=== PATIENT | female | born 1965 | race Hispanic/Latino ===

== ENCOUNTER → 2024-08-25 | Day surgery (SDC) | payer OTHER ==
[~2024-08-25] MED LIST: CIPRO500 MG PO; FAMOTIDINE20 MG PO; FAMOTIDINE40 MG PO; LEVSIN-SL0.125 MG SL; LORATADINE10 MG PO; MELOXICAM7.5 MG PO; NIFEDIPINE ER30 M1 PO; OLMESARTAN-HCT1 EACH PO; PREDNISONE20 MG PO; VIT D PO
[2024-08-25] MEDS: LACTATED RINGER'S 1,000 ML ONE (07:39)
[2024-08-25 11:00] VITALS: BP 152/84; PULSE 91; RESP 16; TEMP 98; O2SAT 97
== END | disposition home or self-care (01) ==
LOC: OR 06:50
PROVIDERS: ATTEND Internal Medicine Gastroenterology
DX: Z12.11 Encounter for screening for malignant neoplasm of colon (principal); D12.2 Benign neoplasm of ascending colon; K26.3 Acute duodenal ulcer without hemorrhage or perforation; K29.80 Duodenitis without bleeding; K29.50 Unspecified chronic gastritis without bleeding; B96.81 Helicobacter pylori [H. pylori] as the cause of diseases classified elsewhere; K44.9 Diaphragmatic hernia without obstruction or gangrene; R19.7 Diarrhea, unspecified; K57.30 Diverticulosis of large intestine without perforation or abscess without bleeding; K64.8 Other hemorrhoids; G47.33 Obstructive sleep apnea (adult) (pediatric); I10 Essential (primary) hypertension; E66.01 Morbid (severe) obesity due to excess calories; Z01.810 Encounter for preprocedural cardiovascular examination; Z79.1 Long term (current) use of non-steroidal anti-inflammatories (NSAID); Z79.899 Other long term (current) drug therapy; Z68.35 Body mass index [BMI] 35.0-35.9, adult; Z86.69 Personal history of other diseases of the nervous system and sense organs; Z80.0 Family history of malignant neoplasm of digestive organs
CPT/HCPCS: 43239; 45380; 45384; 88305; 93005; J7121; 45385

== ENCOUNTER 2024-08-28 09:18 | Inpatient (IN) | payer OTHER ==
[~2024-08-28] VITALS: Ht 162.6 cm; Wt 91.2 kg
[~2024-08-28 09:18] MED LIST changes: -FAMOTIDINE20 MG PO; -LORATADINE10 MG PO; -PREDNISONE20 MG PO
[2024-08-28 10:04] LABS: BASOPHILS # (AUTO) 0.1 (0.0-0.1); BASOPHILS % 1.2 % (0.0-1.0); EOSINOPHILS # (AUTO) 0.6 (0.0-0.4); EOSINOPHILS % 6.1 % (0.0-6.0); HEMATOCRIT 37.7 % (34.2-44.1); HEMOGLOBIN 12.5 g/dL (12.0-16.0); LYMPHOCYTES # (AUTO) 1.8 (1.0-3.2); LYMPHOCYTES % 18.1 % (18.0-39.1); MEAN CORPUSCULAR HEMOGLOBIN 28.3 pg (28-32); MEAN CORPUSCULAR HGB CONC 33.2 g/dL (31-35); MEAN CORPUSCULAR VOLUME 85.5 fL (81-99); MONOCYTES # (AUTO) 1.1 (0.2-0.8); MONOCYTES % 10.7 % (4.4-11.3); NEUTROPHILS # (AUTO) 6.1 (2.1-6.9); NEUTROPHILS % 62.1 % (38.7-80.0); PLATELET COUNT 252 x10e3/uL (140-360); RED BLOOD COUNT 4.41 x10e6/uL (3.6-5.1); WHITE BLOOD COUNT 9.78 x10e3/uL (4.8-10.8)
[2024-08-28 10:23] LABS: ALBUMIN 3.8 g/dL (3.5-5.0); ANION GAP 14.4 mmol/L (8-16); BILIRUBIN,TOTAL 0.3 mg/dL (0.2-1.2); CALCIUM 9.4 mg/dL (8.4-10.2); CREATININE, SERUM 0.78 mg/dL (0.57-1.11); POTASSIUM 3.4 mmol/L (3.5-5.1); TOTAL PROTEIN 7.6 g/dL (6.5-8.1)
[2024-08-28] MEDS: FAMOTIDINE 20 MG/2 ML VIAL IV STA (10:37)
[2024-08-28] MEDS: SODIUM CHLORIDE 0.9% 1000ML 1,000 ML IV ONE (10:38)
[2024-08-28] MEDS: METHYLPREDNISOLONE SOD SUCC 125 MG/2ML VIAL IV ONE (10:38)
[2024-08-28] MEDS: DIPHENHYDRAMINE HCL INJ 50 MG/ML VIAL IV ONE (10:38)
[2024-08-28] MEDS ORDERED: IOPAMIDOL 370 MG/ML 100 ML INFUS..BTL INJ ONE (10:40)
[2024-08-28] MEDS ORDERED: ONDANSETRON HCL INJ 2MG/ML 2ML 2 MG/ML VIAL IV PRN (12:30)
[2024-08-28] MEDS ORDERED: SODIUM CHLORIDE FLUSH 10 ML SYR INJ PRN (12:30)
[2024-08-28 12:36] VITALS: TEMP 98.4
[2024-08-28 14:38] VITALS: PULSE 64; RESP 18
[2024-08-28 15:30] VITALS: BP_SYST 144; BP_SYST 150; BP_DIAS 111; BP_DIAS 53; PULSE 106; PULSE 75; RESP 20; TEMP 98.2; TEMP 98.7; O2SAT 100; O2SAT 99
[2024-08-28] MEDS: LORATADINE 10 MG TAB PO SCH (17:23)
[2024-08-28 20:00] VITALS: BP 141/96; PULSE 115; RESP 18; TEMP 99.1; O2SAT 98
[2024-08-28] MEDS: FAMOTIDINE 20 MG TAB PO SCH (20:42)
[2024-08-28] MEDS: ACETAMINOPHEN/CODEINE 300MG - 30MG TAB PO PRN (20:43)
[2024-08-28] MEDS: NIFEDIPINE CR 30 MG TAB PO SCH (20:49)
[2024-08-28] MEDS: SODIUM CHLORIDE 0.9% 250ML 250 ML ONE (20:54)
[2024-08-29] VITALS (7 sets, daily range): BP systolic 110–138; BP diastolic 78–87; PULSE 94–109; RESP 17–20; TEMP 98.3–99.3; O2SAT 96–100
[2024-08-29] MEDS: MELATONIN 3 MG TAB PO SCH (03:34)
[2024-08-29] MEDS: HYDROCODONE/APAP 7.5MG-325MG 1 EA TAB PO PRN (03:35)
[2024-08-29 05:43] LABS: BASOPHILS # (AUTO) 0.1 (0.0-0.1); BASOPHILS % 0.3 % (0.0-1.0); EOSINOPHILS % 0.1 % (0.0-6.0); HEMATOCRIT 37.9 % (34.2-44.1); HEMOGLOBIN 12.1 g/dL (12.0-16.0); LYMPHOCYTES # (AUTO) 1.9 (1.0-3.2); LYMPHOCYTES % 13.4 % (18.0-39.1); MEAN CORPUSCULAR HGB CONC 31.9 g/dL (31-35); MEAN CORPUSCULAR VOLUME 87.7 fL (81-99); MONOCYTES # (AUTO) 1.2 (0.2-0.8); MONOCYTES % 8.4 % (4.4-11.3); NEUTROPHILS % 77.2 % (38.7-80.0); PLATELET COUNT 280 x10e3/uL (140-360); RED BLOOD COUNT 4.32 x10e6/uL (3.6-5.1); RED CELL DISTRIBUTION WIDTH 13.2 % (11.7-14.4); WHITE BLOOD COUNT 14.29 x10e3/uL (4.8-10.8)
[2024-08-29 06:10] LABS: ALBUMIN 3.8 g/dL (3.5-5.0); ANION GAP 15.3 mmol/L (8-16); BILIRUBIN,TOTAL 0.3 mg/dL (0.2-1.2); CALCIUM 9.4 mg/dL (8.4-10.2); CREATININE, SERUM 0.73 mg/dL (0.57-1.11); TOTAL PROTEIN 7.7 g/dL (6.5-8.1)
[2024-08-29 06:12] LABS: POTASSIUM 3.3 mmol/L (3.5-5.1)
[2024-08-29] MEDS: DIPHENHYDRAMINE HCL 25 MG CAP PO PRN (12:27)
[2024-08-29] MEDS: MAALOX/LIDOCAINE/BENADRYL/NYST 30 ML BTL PO PRN (12:31)
[2024-08-29] MEDS ORDERED: MELATONIN 3 MG TAB PO SCH (21:00)
[2024-08-30] VITALS (9 sets, daily range): BP systolic 115–125; BP diastolic 74–91; PULSE 86–115; RESP 17–19; TEMP 97.3–98.6; O2SAT 97–100
[2024-08-30] MEDS: POTASSIUM CHLORIDE 20 MEQ TAB CR PO STA (03:52)
[2024-08-30] MEDS: POTASSIUM CHLORIDE 20 MEQ TAB CR PO ONE (14:32)
[2024-08-30] MEDS: PREDNISONE 10 MG TAB PO SCH (14:36)
[2024-08-31] VITALS: BP 117/86; PULSE 65; RESP 17; TEMP 98.5; O2SAT 98
[2024-08-31 04:00] VITALS: BP 128/90; PULSE 79; RESP 17; TEMP 98.4; O2SAT 96
[2024-08-31 07:21] LABS: BASOPHILS # (AUTO) 0.1 (0.0-0.1); BASOPHILS % 1.5 % (0.0-1.0); EOSINOPHILS # (AUTO) 0.3 (0.0-0.4); EOSINOPHILS % 3.2 % (0.0-6.0); HEMATOCRIT 37.4 % (34.2-44.1); HEMOGLOBIN 11.5 g/dL (12.0-16.0); LYMPHOCYTES # (AUTO) 2.5 (1.0-3.2); LYMPHOCYTES % 28.2 % (18.0-39.1); MEAN CORPUSCULAR HEMOGLOBIN 27.8 pg (28-32); MEAN CORPUSCULAR HGB CONC 30.7 g/dL (31-35); MEAN CORPUSCULAR VOLUME 90.6 fL (81-99); MONOCYTES # (AUTO) 0.7 (0.2-0.8); MONOCYTES % 7.9 % (4.4-11.3); NEUTROPHILS # (AUTO) 5.2 (2.1-6.9); NEUTROPHILS % 58.7 % (38.7-80.0); PLATELET COUNT 285 x10e3/uL (140-360); RED BLOOD COUNT 4.13 x10e6/uL (3.6-5.1); RED CELL DISTRIBUTION WIDTH 13.2 % (11.7-14.4); WHITE BLOOD COUNT 8.82 x10e3/uL (4.8-10.8)
[2024-08-31 07:31] VITALS: BP 120/80; PULSE 84; RESP 17; TEMP 98.6; O2SAT 98
[2024-08-31 08:00] LABS: ANION GAP 12.7 mmol/L (8-16); CALCIUM 9.1 mg/dL (8.4-10.2); CREATININE, SERUM 0.69 mg/dL (0.57-1.11); MAGNESIUM 2.2 MG/DL (1.3-2.1); POTASSIUM 3.7 mmol/L (3.5-5.1)
[2024-08-31] MEDS ORDERED: METHYLPREDNISOLONE PO SCH (09:00)
[2024-08-31] MEDS ORDERED: [UNRECOGNIZED DRUG - OTHER] PO SCH (09:00)
[2024-08-31 11:31] VITALS: BP 116/81; PULSE 88; RESP 17; TEMP 98.1; O2SAT 99
[2024-08-31 16:04] VITALS: BP 119/77; PULSE 87; RESP 17; TEMP 98.3; O2SAT 99
[2024-08-31 16:20] VITALS: BP 119/77; PULSE 87; RESP 17; TEMP 98.3; O2SAT 99
[2024-08-31] MEDS ORDERED: LORATADINE10 MG PO (17:00)
[2024-08-31] MEDS ORDERED: FAMOTIDINE20 MG PO (17:00)
[2024-08-31] MEDS ORDERED: PREDNISONE20 MG PO (17:00)
[2024-08-31] MEDS ORDERED: ONDANSETRON HCL 4 MG ORAL DISINTEGRATING TAB PO PRN (17:45)
[2024-09-01] MEDS ORDERED: PREDNISONE 20 MG TAB PO SCH (09:00)
[2024-09-01] MEDS ORDERED: PREDNISONE 5 MG TAB PO SCH (12:00)
== END 2024-08-31 18:38 | disposition home or self-care (01) | DRG 916 ==
LOC: ER 09:48 → ERHOLD 12:23 → MED/SURG2 15:08 → OBSVTOIN 08-31 15:23
PROVIDERS: ADMIT Internal Medicine; ATTEND Internal Medicine
DX: T78.3XXA Angioneurotic edema, initial encounter (principal); E87.6 Hypokalemia; K12.0 Recurrent oral aphthae; I10 Essential (primary) hypertension; K21.9 Gastro-esophageal reflux disease without esophagitis
CPT/HCPCS: 36415; 70491; 80048; 80053; 82565; 82948; 83735; 84100; 85025; 86039; 86140; 99284; G0378; J0696; J1200; J2919; J7030; J7050; J7512; Q9967

== ENCOUNTER 2024-10-05 12:34 | Emergency (ER) | payer OTHER ==
[~2024-10-05] VITALS: Ht 162.6 cm; Wt 91.6 kg
[~2024-10-05 12:34] MED LIST changes: +FAMOTIDINE20 MG PO; +LORATADINE10 MG PO; +PREDNISONE20 MG PO
[2024-10-05 12:40] VITALS: PULSE 105; RESP 16; TEMP 98.2; O2SAT 100
[2024-10-05] MEDS ORDERED: PEPCID20 MG PO (14:43)
[2024-10-05] MEDS: KETOROLAC TROMETHAMINE 30 MG/ML VIAL IM ONE (14:56)
== END 2024-10-05 15:17 | disposition home or self-care (01) ==
LOC: ER 13:58
DX: M25.562 Pain in left knee (principal); X50.1XXA Overexertion from prolonged static or awkward postures, initial encounter; Y92.89 Other specified places as the place of occurrence of the external cause; I10 Essential (primary) hypertension; K21.9 Gastro-esophageal reflux disease without esophagitis; Z87.442 Personal history of urinary calculi
CPT/HCPCS: 73562; 99283; J1885